=== PATIENT | female | born 1950 | race Caucasian/White ===

== ENCOUNTER 2016-09-28 19:51 | Emergency (ER) | payer MEDICARE, BC ==
[2016-09-28 19:58] VITALS: BP 120/69
[2016-09-28] MEDS ORDERED: Ondansetron 4 MG/2 ML SDV IVPUSH ONE (20:34)
--- NOTE | 2016-09-28 20:36 | EDM.PDOC ---
ED HPI GENERAL MEDICAL PROBLEM - General Chief Complaint: Syncope Stated Complaint: ADRIANA BENJAMIN Time Seen by Provider: 09/28/16 20:25 Source of Information: Reports: Patient, EMS, EMS Notes Reviewed History Limitations: Reports: No Limitations - History of Present Illness INITIAL COMMENTS - FREE TEXT/NARRATIVE: Patient is a 66-year-old female who presents to the ED complaining of syncopal episode, left-sided forehead and nose pain. Patient states while sitting on the toilet to void she became dizzy, lightheaded, nauseated, and put her head between her legs. States that and other family members heard the patient hit the bathroom floor and found her lying unconscious on the bathroom floor. Patient was arousable quite quickly with no confusion present. 911 was called. Patient was able to get up with assistance and ambulate to a chair. Upon arrival EMS found the patient to be pale, diaphoretic, and dizzy. They laid the patient down. Patient became nauseated and vomited 1. States she felt better after this occurred. Prior to having a syncopal episode patient denies straining to void. Patient states since noon she's felt quite queasy and felt her stomach to be upset with mild epigastric discomfort. She has been nauseated throughout the course of the day. Upon arrival to the ED diaphoresis has somewhat improved and the color of her skin has improved as well. States last bowel movement was this afternoon described as being soft with no blood present. No straining required. She's had no prior history of similar symptoms. She denies any chest pain, shortness of breath, vision changes, headache, neck pain, back pain, dysuria, fever/chills, recent sick exposures, bad or questionable food ingestion. Past medical history includes: Hypertension, hypercholesteremia, iron deficiency anemia, bilateral knee arthritis Current medications include: See list. - Related Data Allergies Allergy/AdvReac Type Severity Reaction Status Date / Time No Known Allergies Allergy Verified 09/28/16 19:53 Home Meds: Home Meds Losartan Potassium [Losartan Potassium] 50 mg PO DAILY 09/28/16 [History] Nabumetone 500 mg PO DAILY 09/28/16 [History] Zolpidem [Ambien] 5 mg PO BEDTIME PRN 09/28/16 [History] atorvaSTATin Calcium [Atorvastatin Calcium] 20 mg PO DAILY 09/28/16 [History] Nitrofurantoin Monohyd/M-Cryst [Macrobid 100 mg Capsule] 100 mg PO BID #10 capsule 09/29/16 [Rx] Past Medical History Cardiovascular History: Reports: High Cholesterol, Hypertension Social & Family History - Tobacco Use Smoking Status *Q: Never Smoker - Recreational Drug Use Recreational Drug Use: No ED ROS GENERAL - Review of Systems Review Of Systems: ROS reveals no pertinent complaints other than HPI. - Physical Exam Exam: See Below Exam Limited By: No Limitations General Appearance: Alert, WD/WN, No Apparent Distress Eye Exam: Bilateral Eye: EOMI, Nystagmus (none found), PERRL Ears: Hearing Grossly Normal Nose: Nasal Tenderness. No: Nasal Deformity, Nasal Swelling Throat/Mouth: Normal Inspection, Normal Oropharynx, Normal Voice, No Airway Compromise Head Exam: Facial Ecchymosis, Facial Swelling, Facial Tenderness Neck: Normal Inspection, Supple, Non-Tender, Full Range of Motion. No: Lymphadenopathy (L), Lymphadenopathy (R) Respiratory/Chest: No Respiratory Distress, Lungs Clear, Normal Breath Sounds, No Accessory Muscle Use, Chest Non-Tender Cardiovascular: Normal Peripheral Pulses, Regular Rate, Rhythm, No Murmur GI/Abdominal: Normal Bowel Sounds, Soft, Non-Tender, No Organomegaly, No Distention Neuro Exam (Abbreviated): Alert, Oriented, CN II-XII Intact, Normal Cognition, No Motor/Sensory Deficits, Other (Cerebellum function intact. No facial droop, upper/lower extremity weakness, pronator drift, slurred speech. ) Back Exam: Normal Inspection, Full Range of Motion. No: Paraspinal Tenderness, Vertebral Tenderness Extremities: Normal Inspection, Normal Range of Motion, Non-Tender, No Pedal Edema, Normal Capillary Refill Psychiatric: Normal Affect, Normal Mood Skin Exam: Warm, Intact, Diaphoretic Course - Vital Signs Last Recorded V/S: Last Vital Signs Temp 96.6 F 09/28/16 19:53 Pulse 104 H 09/28/16 19:53 Resp 20 09/28/16 19:53 BP 120/69 09/28/16 19:53 Pulse Ox 95 09/28/16 19:53 Orthostatic Blood Pressure [ 104/66 Standing] Orthostatic Blood Pressure [ 117/65 Sitting] Orthostatic Blood Pressure [ 136/73 Supine] - Orders/Labs/Meds Orders: Active Orders 24 hr Category Date Time Status EKG Documentation Completion [RC] STAT Care 09/28/16 20:08 Active Fecal Occult Blood Collection [RC] ASDIRECTED Care 09/29/16 06:36 Active Orthostatic Vital Signs [RC] ASDIRECTED Care 09/28/16 20:27 Active CULTURE URINE [RM] Stat Lab 09/29/16 01:15 Results Labs: Laboratory Tests 09/28/16 09/28/16 09/28/16 Range/Units 20:45 20:45 20:45 WBC 13.03 H (3.98-10.04) K/mm3 RBC 3.16 L (3.98-5.22) M/mm3 Hgb 9.2 L (11.2-15.7) gm/L Hct 29.0 L (34.1-44.9) % MCV 91.8 (79.4-94.8) fl MCH 29.1 (25.6-32.2) pg MCHC 31.7 L (32.2-35.5) g/dl RDW Std Deviation 43.0 (36.4-46.3) fL Plt Count 316 (182-369) K/mm3 MPV 9.5 (9.4-12.3) fl Neut % (Auto) 67.3 (34.0-71.1) % Lymph % (Auto) 23.8 (19.3-51.7) % Mcdowell % (Auto) 7.0 (4.7-12.5) % Eos % (Auto) 1.2 (0.7-5.8) Baso % (Auto) 0.3 (0.1-1.2) % Neut # (Auto) 8.77 H (1.56-6.13) K/mm3 Lymph # (Auto) 3.10 (1.18-3.74) K/mm3 Mcdowell # (Auto) 0.91 H (0.24-0.36) K/mm3 Eos # (Auto) 0.16 (0.04-0.36) K/mm3 Baso # (Auto) 0.04 (0.01-0.08) K/mm3 Manual Slide Review Abnormal smear Sodium (136-145) mEq/L Potassium (3.5-5.1) mEq/L Chloride (98-107) mEq/L Carbon Dioxide (21-32) mEq/L Anion Gap (5-15) BUN (7-18) mg/dL Creatinine (0.55-1.02) mg/dL Est Cr Clr Drug Dosing mL/min Estimated GFR (MDRD) (>60) mL/min BUN/Creatinine Ratio (14-18) Glucose (80-115) mg/dL Calcium (8.5-10.1) mg/dL Total Bilirubin (0.2-1.0) mg/dL AST (15-37) U/L ALT (14-59) U/L Alkaline Phosphatase (46-116) U/L Troponin I < 0.017 (0.00-0.056) ng/mL C-Reactive Protein < 0.2 (<1.0) mg/dL B-Natriuretic Peptide < 15 (0-100) pg/mL Total Protein (6.4-8.2) g/dl Albumin (3.4-5.0) g/dl Globulin gm/dL Albumin/Globulin Ratio (1-2) Lipase 164 (73-393) U/L Urine Color (Yellow) Urine Appearance (Clear) Urine pH (5.0-8.0) Ur Specific [place] (1.005-1.030) Urine Protein (Negative) Urine Glucose (UA) (Negative) Urine Ketones (Negative) Urine Occult Blood (Negative) Urine Nitrite (Negative) Urine Bilirubin (Negative) Urine Urobilinogen (0.2-1.0) Ur Leukocyte Esterase (Negative) Urine RBC (0-5) /hpf Urine WBC (0-5) /hpf Ur Epithelial Cells (0-5) /hpf Urine Bacteria (FEW) /hpf Urine Mucus (FEW) /hpf 09/28/16 09/28/16 Range/Units 20:45 21:30 WBC (3.98-10.04) K/mm3 RBC (3.98-5.22) M/mm3 Hgb (11.2-15.7) gm/L Hct (34.1-44.9) % MCV (79.4-94.8) fl MCH (25.6-32.2) pg MCHC (32.2-35.5) g/dl RDW Std Deviation (36.4-46.3) fL Plt Count (182-369) K/mm3 MPV (9.4-12.3) fl Neut % (Auto) (34.0-71.1) % Lymph % (Auto) (19.3-51.7) % Mcdowell % (Auto) (4.7-12.5) % Eos % (Auto) (0.7-5.8) Baso % (Auto) (0.1-1.2) % Neut # (Auto) (1.56-6.13) K/mm3 Lymph # (Auto) (1.18-3.74) K/mm3 Mcdowell # (Auto) (0.24-0.36) K/mm3 Eos # (Auto) (0.04-0.36) K/mm3 Baso # (Auto) (0.01-0.08) K/mm3 Manual Slide Review Sodium 143 (136-145) mEq/L Potassium 3.6 (3.5-5.1) mEq/L Chloride 110 H (98-107) mEq/L Carbon Dioxide 22 (21-32) mEq/L Anion Gap 14.6 (5-15) BUN 50 H (7-18) mg/dL Creatinine 0.7 (0.55-1.02) mg/dL Est Cr Clr Drug Dosing 65.40 mL/min Estimated GFR (MDRD) > 60 (>60) mL/min BUN/Creatinine Ratio 71.4 H (14-18) Glucose 111 (80-115) mg/dL Calcium 8.3 L (8.5-10.1) mg/dL Total Bilirubin 0.2 (0.2-1.0) mg/dL AST 13 L (15-37) U/L ALT 23 (14-59) U/L Alkaline Phosphatase 70 (46-116) U/L Troponin I (0.00-0.056) ng/mL C-Reactive Protein (<1.0) mg/dL B-Natriuretic Peptide (0-100) pg/mL Total Protein 6.1 L (6.4-8.2) g/dl Albumin 2.9 L (3.4-5.0) g/dl Globulin 3.2 gm/dL Albumin/Globulin Ratio 0.9 L (1-2) Lipase (73-393) U/L Urine Color Yellow (Yellow) Urine Appearance Clear (Clear) Urine pH 6.5 (5.0-8.0) Ur Specific [place] 1.015 (1.005-1.030) Urine Protein Negative (Negative) Urine Glucose (UA) Negative (Negative) Urine Ketones Negative (Negative) Urine Occult Blood Negative (Negative) Urine Nitrite Negative (Negative) Urine Bilirubin Negative (Negative) Urine Urobilinogen 0.2 (0.2-1.0) Ur Leukocyte Esterase 1+ H (Negative) Urine RBC 0-5 (0-5) /hpf Urine WBC 5-10 H (0-5) /hpf Ur Epithelial Cells 0-5 (0-5) /hpf Urine Bacteria Few (FEW) /hpf Urine Mucus Not seen (FEW) /hpf Meds: Medications Discontinued Medications Generic Name Dose Route Start Last Admin Trade Name Freq PRN Reason Stop Dose Admin Sodium Chloride 1,000 mls @ 999 mls/hr 09/29/16 00:03 09/29/16 00:12 Normal Saline IV 09/29/16 01:03 999 mls/hr ONETIME ONE Administration Nitrofurantoin Macrocrystals 100 mg 09/29/16 01:16 09/29/16 01:30 Macrobid PO 09/29/16 01:17 100 mg ONETIME ONE Administration Ondansetron HCl 4 mg 09/28/16 20:34 09/28/16 20:39 Zofran IVPUSH 09/28/16 20:35 4 mg ONETIME ONE Administration Pantoprazole Sodium 40 mg 09/29/16 01:17 09/29/16 01:30 Protonix PO 09/29/16 01:18 40 mg ONETIME ONE Administration - Re-Assessments/Exams Free Text/Narrative Re-Assessment/Exam: Peripheral IV established by EMS with NS running TKO. Ordered Zofran 4 mg IVP. Initial labs and studies include EKG, chest x-ray, CBC, chem 14, CRP, UA, lipase , and CT head without contrast. Per well's criteria patient has low probability of PE with the prevalence of 2-4%. Patient's heart rate is 110. There are no clinical signs or symptoms suggesting DVTs and/or PE being the first one diagnosis. She denies recent surgery. She has no history DVT/PE. Denies any hemoptysis or malignancy. EKG: Sinus tachycardia with no acute ST changes noted. One PVC present. Labs reviewed: White blood cell count 13.03, hemoglobin is 9.2 which is decreased from January 23, 2017 at 12.5, platelets 316, troponin less than 0.017 , CRP is less than 0.2, BNP less than 15, lipase is 164. Ordered Hemoccult test. Chemistry panel is pending. Chest x-ray reviewed: Appears to be a hiatal hernia present with borderline cardiomegaly. No acute findings noted. Reviewed with Dr. Sofia. CT of the head impression: Nothing acute appreciated. 09/28/16 21:42 09/28/16 23:19 Hemoccult was positive. BUN is 50. This suggesting upper GI bleed. Orthostatic vitals have not been obtained. Orthostatic vitals were positive. Patient has no history of congestive heart failure. Patient recently started nabumetone for arthritis twice a day 2 weeks ago and suspect may be a culprit for recent GI bleed. At this point will administer 1 thousand mls of fluid. To see if this corrects her orthostasis. She can see a GI doctor on a outpatient basis for EGD and colonoscopy. This is patient's wishes to be not admitted to the hospital at this point. Of note patients color has drastically improved. Patient is not nauseated. She feels significantly better. No dizziness noted with standing. UA came back positive for infection. Urine WBCs 5 to 10 and LE positive. Ordered macrobid 100mg PO and protonix 40mg IV. 1315 HR is trending downward 96. BP remains normotensive. Patient continues to feel well with no dizziness upon standing. Will discharge patient home with instructions as documented. Departure - Departure Time of Disposition: 01:28 Disposition: Home, Self-Care 01 Condition: Good Clinical Impression: Orthostatic syncope GI bleed Qualifiers: GI bleed type/associated pathology: unspecified gastrointestinal hemorrhage type Qualified Code(s): K92.2 - Gastrointestinal hemorrhage, unspecified Anemia Qualifiers: Anemia type: unspecified type Qualified Code(s): D64.9 - Anemia, unspecified - Discharge Information Prescriptions: Nitrofurantoin Monohyd/M-Cryst [Macrobid 100 mg Capsule] 100 mg PO BID #10 capsule Instructions: Gastrointestinal Bleeding Referrals: Susan De Souza PA [Primary Care Provider] - Jazmyne Martinez MD [Physician] - Forms: ED Department Discharge Additional Instructions: As discussed hemoglobin is 9.2 which is drop from 12 this past January. Stool was positive for blood suggesting is a GI bleed present. Unknown when this may have started. Unclear if this is related to starting nabumetone. Thus will have you stop taking the nabumetone and any nsaids since this can be contributing to GI bleed. In addition will have start taking omeprazole 20mg PO every a.m. In addition UA revealed positive for infection thus will have you take macrobid 100mg twice a day for 2 days. Upon arrival to the E.D. it was noted vital signs were orthostatic suggesting associated volume depletion. Probable cause combination of not feeling well with poor intake of fluids and low HGB. Thus will have you see a general surgeon in the next week for reevaluation. EGD and colonoscopy will need to be obtained to further investigate etiology of GI bleed. Push the fluids and eat balanced diet. Continue taking iron supplementation. Return to the E.D. if you experience any new or worsening symptoms. - My Orders Last 24 Hours: My Active Orders 09/28/16 20:08 EKG Documentation Completion [RC] STAT 09/28/16 20:27 Orthostatic Vital Signs [RC] ASDIRECTED 09/29/16 01:15 CULTURE URINE [RM] Stat 09/29/16 06:36 Fecal Occult Blood Collection [RC] ASDIRECTED - Assessment/Plan Last 24 Hours: My Active Orders 09/28/16 20:08 EKG Documentation Completion [RC] STAT 09/28/16 20:27 Orthostatic Vital Signs [RC] ASDIRECTED 09/29/16 01:15 CULTURE URINE [RM] Stat 09/29/16 06:36 Fecal Occult Blood Collection [RC] ASDIRECTED
--- NOTE | 2016-09-28 21:18 | CT ---
Head CT Technique: Multiple axial sections through the brain were obtained. Intravenous contrast was not utilized. Comparison: No previous intracranial imaging. Findings: Ventricles along with basal cisterns and sulci over the convexities are within normal limits for the patient's age. Mild vascular calcification is seen within carotid siphon and within the right vertebral vessel. No abnormal parenchymal densities are seen. No evidence of intracranial hemorrhage. No midline shift or mass effect is seen. Bone window settings were reviewed which shows no acute calvarial abnormality. Impression: 1. Incidental findings. Nothing acute is appreciated on noncontrast head CT study. Diagnostic code #2
[2016-09-29] MEDS ORDERED: Sodium Chloride 0.9% 1,000 ML IV ONE (00:03)
[2016-09-29] MEDS ORDERED: Nitrofurantoin Monohydrate/Macrocrystalline 100 MG Cap PO ONE (01:16)
[2016-09-29] MEDS ORDERED: Pantoprazole 40 MG Tab.CR PO ONE (01:17)
--- NOTE | 2016-09-29 07:43 | CR ---
Chest: Portable view of the chest was obtained. Comparison: No previous study. Heart is mildly enlarged. Tortuous thoracic aorta is seen. Moderately large hiatal hernia is present. Lungs are clear. Bony structures are grossly intact. Impression: 1. Incidental findings as noted above. 2. Nothing acute is identified on portable chest x-ray. Diagnostic code #2
== END 2016-09-29 01:45 | disposition home or self-care (01) ==
LOC: JD.ED 19:51
DX: R55 Syncope and collapse (principal); K92.2 Gastrointestinal hemorrhage, unspecified; D64.9 Anemia, unspecified; I10 Essential (primary) hypertension; E78.00 Pure hypercholesterolemia, unspecified; M17.0 Bilateral primary osteoarthritis of knee; Z79.899 Other long term (current) drug therapy
CPT/HCPCS: 36415; 70450; 71010; 80053; 81001; 82270; 83690; 83880; 84484; 85025; 86140; 87086; 93005; 96361; 96374; 99285; A9270; J2405; J7040; 99284

== ENCOUNTER 2017-05-20 14:06 | Emergency (ER) | payer MEDICARE, BC ==
[2017-05-20 14:16] VITALS: BP 173/95
--- NOTE | 2017-05-20 14:34 | EDM.PDOC ---
ED HPI GENERAL MEDICAL PROBLEM - General Chief Complaint: General Stated Complaint: CHEST CONGESTION/ COUGH Time Seen by Provider: 05/20/17 14:20 Source of Information: Reports: Patient History Limitations: Reports: No Limitations - History of Present Illness INITIAL COMMENTS - FREE TEXT/NARRATIVE: 66-year-old female presents for evaluation and treatment of cough and congestion. Reports that her symptoms started with nasal congestion and sinus pressure. She initially used a nasal mist for her symptoms. Reports current symptoms of fevers and chills, decreased appetite, fatigue, weakness and productive cough. She questions if there was some blood in her cough. She denies any sore throat, ear pain, nausea, vomiting, diarrhea or abdominal pain. She is not feel lightheaded or had any syncopal episodes. She did receive a pneumonia and a flu shot earlier this year. Duration: Day(s): (2) Middle Chest Pain Score (Numeric/FACES): 4 - Related Data Allergies Allergy/AdvReac Type Severity Reaction Status Date / Time No Known Allergies Allergy Verified 05/20/17 14:15 Home Meds: Home Meds Losartan Potassium [Losartan Potassium] 50 mg PO DAILY 09/28/16 [History] Zolpidem [Ambien] 5 mg PO BEDTIME PRN 09/28/16 [History] atorvaSTATin Calcium [Atorvastatin Calcium] 20 mg PO DAILY 09/28/16 [History] Oseltamivir [Tamiflu] 75 mg PO BID #10 cap 05/20/17 [Rx] Past Medical History HEENT History: Reports: Impaired Vision Cardiovascular History: Reports: High Cholesterol, Hypertension Genitourinary History: Reports: Renal Calculus - Past Surgical History Female Surgical History: Reports: Kidney stone extraction Social & Family History - Tobacco Use Smoking Status *Q: Never Smoker Second Hand Smoke Exposure: No - Caffeine Use Caffeine Use: Reports: Coffee - Recreational Drug Use Recreational Drug Use: No ED ROS GENERAL - Review of Systems Review Of Systems: See Below Constitutional: Reports: Fever, Chills, Weakness, Fatigue HEENT: Denies: Ear Pain, Throat Pain Respiratory: Reports: Cough, Sputum, Hemoptysis (minimal amount, tinge in phlegm ) GI/Abdominal: Denies: Abdominal Pain, Diarrhea, Nausea, Vomiting Neurological: Denies: Dizziness, Syncope ED EXAM, GENERAL - Physical Exam Exam: See Below Exam Limited By: No Limitations General Appearance: Alert, WD/WN, Mild Distress, Obese Eye Exam: Bilateral Eye: Normal Inspection Ears: Normal External Exam, Normal Canal, Hearing Grossly Normal, Normal TMs Nose: Normal Inspection Throat/Mouth: Normal Inspection, Normal Lips, Normal Voice, No Airway Compromise Neck: Normal Inspection Respiratory/Chest: No Respiratory Distress, Lungs Clear, Normal Breath Sounds Cardiovascular: Normal Peripheral Pulses, Regular Rate, Rhythm, No Murmur Neurological: Alert, Oriented, Normal Cognition Psychiatric: Normal Affect, Normal Mood Skin Exam: Normal Color, Diaphoretic, Increased Warmth Course - Vital Signs Last Recorded V/S: Last Vital Signs Temp 36.4 C 05/20/17 14:12 Pulse 115 H 05/20/17 14:12 Resp 19 05/20/17 14:12 BP 173/95 H 05/20/17 14:12 Pulse Ox 95 05/20/17 14:18 - Orders/Labs/Meds Orders: Active Orders 24 hr Category Date Time Status Chest 2V [CR] Stat Exams 05/20/17 14:29 Taken - Radiology Interpretation Free Text/Narrative:: chest xray shows no acute intrathoraic process - Re-Assessments/Exams Free Text/Narrative Re-Assessment/Exam: 05/20/17 15:26 Influenza returned positive for type a. I reviewed the labs and chest x-ray results with the patient. Discussed risk and benefits of Tamiflu. Informed of side effects of nausea, vomiting and diarrhea. Offered her significant other Tamiflu for prophylactics. Patient would like to start on Tamiflu. Significant other declined. We will have her follow up with her primary care provider later this week for recheck. Discharge instructions as documented. Departure - Departure Time of Disposition: 15:26 Disposition: Home, Self-Care 01 Condition: Fair Clinical Impression: Influenza A - Discharge Information Prescriptions: Oseltamivir [Tamiflu] 75 mg PO BID #10 cap Instructions: Influenza, Adult, [id number] Referrals: PCP,None [Primary Care Provider] - Forms: ED Department Discharge Additional Instructions: Rest. Make sure you're drinking plenty of fluids. [id number] Tylenol and Motrin as needed for headaches and body equally. Start the Tamiflu. 1 tab twice a day for 5 days. This has been sent to [facility]. Follow up with your primary care provider in one to 2 weeks for a recheck of your symptoms. please return to the ER if your symptoms change or worsen. - My Orders Last 24 Hours: My Active Orders 05/20/17 14:29 Chest 2V [CR] Stat - Assessment/Plan Last 24 Hours: My Active Orders 05/20/17 14:29 Chest 2V [CR] Stat
--- NOTE | 2017-05-21 17:47 | CR ---
Chest: Two views of the chest were obtained. Comparison: Prior chest x-ray of 09/28/16. Scattered areas of atelectasis are seen within both lung bases. Lungs otherwise are clear. Moderately large hiatal hernia is seen. Heart is slightly enlarged with left ventricular configuration. Tortuous thoracic aorta is seen. Bony structures are osteopenic. Mild compression deformity is noted within the lower thoracic spine which is likely old although I have no old imaging to confirm. Impression: 1. Scattered areas of atelectasis within both lungs. 2. Other incidental findings. Diagnostic code #3
== END 2017-05-20 15:35 | disposition home or self-care (01) ==
LOC: JD.ED 14:06
DX: J10.1 Influenza due to other identified influenza virus with other respiratory manifestations (principal); I10 Essential (primary) hypertension; E78.00 Pure hypercholesterolemia, unspecified; Z79.899 Other long term (current) drug therapy
CPT/HCPCS: 71046; 71046-26; 87804; 99283; 99284

== ENCOUNTER 2023-09-14 06:45 | Day surgery (SDC) | payer MEDICARE, BC ==
[~2023-09-14 06:45] MED LIST: Lactated Ringers 1,000 ML ONE; Propofol 200 MG/20 ML SDV ONE; Sodium Chloride 0.9% 10 ML Syringe FLUSH PRN; Sodium Chloride 0.9% 10 ML Syringe FLUSH SCH; ceFAZolin 2 GM Vial ONE; fentaNYL 100 MCG/2 ML SDV ONE
[2023-09-14] MEDS ORDERED: Ropivacaine 0.5% 5 MG/ML 30 ML SDV ONE (06:50)
[2023-09-14] MEDS ORDERED: EPINEPHrine 1 MG/ML SDV ONE (06:50)
[2023-09-14] MEDS: Lactated Ringers 1,000 ML IV SCH (07:00)
[2023-09-14] MEDS ORDERED: Bupivacaine 0.25% 10 ML SDV ONE (07:13)
[2023-09-14] MEDS ORDERED: Triamcinolone Acetonide 40 MG/ML 1 ML SDV ONE (07:13)
[2023-09-14] MEDS ORDERED: Dexamethasone 4 MG/ML 5 ML MDV ONE (07:56)
[2023-09-14] MEDS ORDERED: Ondansetron 4 MG/2 ML SDV ONE (07:56)
[2023-09-14] MEDS ORDERED: dexmedeTOMIDine HCl 200 MCG/2 ML SDV ONE (07:56)
[2023-09-14] MEDS ORDERED: Propofol 200 MG/20 ML SDV ONE ×2 (08:05→08:44)
[2023-09-14] MEDS ORDERED: ePHEDrine 50 MG/ML SDV ONE (08:06)
[2023-09-14] MEDS ORDERED: Phenylephrine 1% 10 MG/ML SDV ONE (08:33)
[2023-09-14] MEDS: Morphine 8 MG, EPINEPHrine 0.3 MG, Cefuroxime 750 MG, Ketorolac 30 MG, Sodium Chloride ... PRN (08:44)
[2023-09-14] MEDS: Tranexamic Acid 1,000 MG/10 ML Vial ONE (08:52)
[2023-09-14] MEDS ORDERED: Ketorolac 30 MG/ML SDV ONE (08:52)
[2023-09-14] MEDS: Vancomycin 1 GM SDV ONE (08:52)
[2023-09-14] MEDS ORDERED: Ondansetron 4 MG/2 ML SDV IVPUSH PRN (09:33)
[2023-09-14] MEDS ORDERED: fentaNYL 100 MCG/2 ML SDV IVPUSH PRN (09:33)
[2023-09-14] MEDS ORDERED: HYDROmorphone 0.5 MG/0.5 ML Syringe IVPUSH PRN (09:33)
[2023-09-14] MEDS ORDERED: Acetaminophen/HYDROcodone 325-5 MG Tab PO PRN (09:56)
[2023-09-14 14:38] VITALS: BP 131/78; PULSE 89
== END 2023-09-14 14:25 | disposition home or self-care (01) ==
LOC: JD.SDS 06:45
PROVIDERS: ATTEND Orthopaedic Surgery
DX: M17.0 Bilateral primary osteoarthritis of knee (principal); I10 Essential (primary) hypertension; K21.9 Gastro-esophageal reflux disease without esophagitis; E78.00 Pure hypercholesterolemia, unspecified; D50.9 Iron deficiency anemia, unspecified; D72.829 Elevated white blood cell count, unspecified; Z79.899 Other long term (current) drug therapy
CPT/HCPCS: 0055T; 20610; 27447; 64447; 73560; 97110; 97161; C1713; C1776; J0171; J0665; J0690; J0697; J1100; J1885; J2270; J2371; J2405; J2704; J2795; J3010; J3301; J3370; J7120; 01402; J3490

== ENCOUNTER 2024-03-14 13:03 | Emergency (ER) | payer MEDICARE, OTHER, BC ==
[2024-03-14] MEDS ORDERED: Sodium Chloride 0.9% 10 ML Syringe FLUSH PRN ×2 (13:52)
[2024-03-14 14:23] LABS: APPEARANCE,URINE CLEAR (Clear); BILIRUBIN,URINE NEGATIVE (Negative); COLOR,URINE YELLOW (Yellow); GLUCOSE,URINE NEGATIVE (Negative); KETONES,URINE NEGATIVE (Negative); LEUKOCYTE ESTERASE,URINE 1+ (Negative); NITRITE,URINE NEGATIVE (Negative); OCCULT BLOOD,URINE NEGATIVE (Negative); PROTEIN,URINE 1+ (Negative); UROBILINOGEN,URINE 0.2 (0.2-1.0)
[2024-03-14 14:32] LABS: BASOPHILS PERCENT AUTO 0.4 % (0.0-1.0); EOSINOPHILS ABSOLUTE AUTO 0.1 K/mm3 (0.0-0.4); EOSINOPHILS PERCENT AUTO 0.7 % (0.0-6.0); HEMATOCRIT 34.6 % (37.0-47.0); IMMATURE GRAN ABSOLUTE AUTO 0.04 K/mm3 (0.00-0.05); IMMATURE GRAN PERCENT AUTO 0.4 % (0.0-0.4); MEAN CORPUSCULAR HEMOGLOBIN 27.6 pg (28.0-32.0); MEAN CORPUSCULAR HGB CONC 31.8 g/dl (32.0-36.0); MEAN CORPUSCULAR VOLUME 86.7 fl (83.0-99.0); MEAN PLATELET VOLUME 9.2 fl (9.4-12.3); MONOCYTES ABSOLUTE AUTO 0.6 K/mm3 (0.0-0.8); MONOCYTES PERCENT AUTO 5.4 % (0.0-8.0); NEUTROPHILS ABSOLUTE AUTO 8.3 K/mm3 (1.8-7.7); NEUTROPHILS PERCENT AUTO 75.1 % (41.0-71.0); PLATELET COUNT,PLT 309 K/mm3 (150-400); RED BLOOD CELL COUNT 3.99 M/mm3 (4.10-5.30); WHITE BLOOD CELL COUNT,WBC 11.03 K/mm3 (3.9-11.3)
[2024-03-14 14:56] LABS: INR 1.02; PROTHROMBIN TIME 10.8 SECONDS (9.7-12.0)
[2024-03-14 14:59] LABS: A/G RATIO 0.8 (1-2); ALBUMIN 3.2 g/dl (3.4-5.0); ANION GAP 15.3 (5-15); BILIRUBIN TOTAL 0.3 mg/dL (0.2-1.0); CALCIUM 9.3 mg/dL (8.5-10.1); EST CRCL DRUG DOSING (CG) 41.45 mL/min; LACTIC ACID 1.2 mmol/L (0.4-2.0); MAGNESIUM 1.9 mg/dL (1.8-2.4); POTASSIUM,K 3.3 mEq/L (3.5-5.1); PROTEIN TOTAL,TP 7.3 g/dl (6.4-8.2)
[2024-03-14 15:42] LABS: RBC,URINE 0-5 /hpf (0-5); RENAL EPITHELIAL CELLS,URINE 0-5 /hpf (0-5); SQUAMOUS EPITHELIAL CELLS,UR 0-5 /hpf (0-5)
[2024-03-14 15:43] LABS: BACTERIA,URINE FEW /hpf (FEW); HYALINE CASTS,URINE 30-40 /lpf (0-5); MUCUS,URINE FEW /hpf (FEW)
[2024-03-14 19:08] VITALS: BP 110/60; PULSE 79
== END 2024-03-14 16:49 | disposition home or self-care (01) ==
LOC: JD.ED 13:03
DX: R53.1 Weakness (principal); I10 Essential (primary) hypertension; E78.00 Pure hypercholesterolemia, unspecified; Z88.8 Allergy status to other drugs, medicaments and biological substances; Z79.899 Other long term (current) drug therapy; Z86.16 Personal history of COVID-19
CPT/HCPCS: 36415; 71045; 71045-26; 80053; 81001; 83605; 83735; 84484; 85025; 85610; 87040; 87086; 87428-QW; 93005; 93010; 99284; 99285

== ENCOUNTER 2024-04-23 06:43 | Day surgery (SDC) | payer MEDICARE, BC, OTHER ==
[~2024-04-23 06:43] MED LIST changes: -Lactated Ringers 1,000 ML ONE; -ceFAZolin 2 GM Vial ONE; -fentaNYL 100 MCG/2 ML SDV ONE
[2024-04-23] MEDS ORDERED: dexmedeTOMIDine HCl 200 MCG/2 ML SDV ONE (06:46)
[2024-04-23] MEDS: Lactated Ringers 1,000 ML IV SCH (07:00)
[2024-04-23] MEDS ORDERED: Ondansetron 4 MG/2 ML SDV ONE (07:15)
[2024-04-23] MEDS ORDERED: ePHEDrine 50 MG/ML SDV ONE (07:28)
[2024-04-23 09:15] VITALS: BP 140/80; PULSE 98
== END 2024-04-23 08:45 | disposition home or self-care (01) ==
LOC: JD.SDS 06:43
PROVIDERS: ATTEND Surgery
DX: K29.51 Unspecified chronic gastritis with bleeding (principal); K44.9 Diaphragmatic hernia without obstruction or gangrene; K57.31 Diverticulosis of large intestine without perforation or abscess with bleeding; I10 Essential (primary) hypertension; E78.00 Pure hypercholesterolemia, unspecified; K21.9 Gastro-esophageal reflux disease without esophagitis; D64.9 Anemia, unspecified; Z79.899 Other long term (current) drug therapy
CPT/HCPCS: 00813; 88305; 99100; J2405; J2704; J3490; J7120

== ENCOUNTER 2024-05-07 09:39 | Observation (INO) | payer MEDICARE, OTHER, BC ==
[~2024-05-07 09:39] MED LIST changes: +Dexamethasone 4 MG/ML 5 ML MDV ONE; +Lidocaine 1% 5 ML VIAL ONE; +Ondansetron 4 MG/2 ML SDV ONE; +Phenylephrine 1% 10 MG/ML SDV ONE; +Rocuronium 50 MG/5 ML Vial ONE; -Sodium Chloride 0.9% 10 ML Syringe FLUSH SCH; +dexmedeTOMIDine HCl 200 MCG/2 ML SDV ONE; +fentaNYL 100 MCG/2 ML SDV ONE
[2024-05-07] MEDS ORDERED: ceFAZolin 2 GM Vial ONE (10:07)
[2024-05-07] MEDS: Lactated Ringers 1,000 ML IV SCH ×2 (10:15→15:19)
[2024-05-07] MEDS ORDERED: HYDROmorphone 0.5 MG/0.5 ML Syringe ONE (10:37)
[2024-05-07] MEDS ORDERED: fentaNYL 100 MCG/2 ML SDV ONE (10:38)
[2024-05-07] MEDS ORDERED: Rocuronium 50 MG/5 ML Vial ONE (10:40)
[2024-05-07] MEDS ORDERED: Propofol 200 MG/20 ML SDV ONE (10:47)
[2024-05-07] MEDS: EPINEPHrine 1 MG/ML SDV ONE (11:32)
[2024-05-07] MEDS: Bupivacaine 0.5% 30 ML SDV ONE (11:32)
[2024-05-07] MEDS ORDERED: Lactated Ringers 1,000 ML ONE (11:34)
[2024-05-07] MEDS ORDERED: Sugammadex Sodium 200 MG/2 ML VIAL IV ONE (12:03)
[2024-05-07] MEDS ORDERED: HYDROmorphone 0.5 MG/0.5 ML Syringe IVPUSH PRN ×2 (13:26→13:48)
[2024-05-07] MEDS ORDERED: Promethazine 25 MG Tab PO PRN (13:26)
[2024-05-07] MEDS ORDERED: Acetaminophen 325 MG Tab PO PRN (13:26)
[2024-05-07] MEDS ORDERED: Ondansetron 4 MG Tab.DIS PO PRN (13:26)
[2024-05-07] MEDS ORDERED: Ketorolac 15 MG/ML SDV IVPUSH PRN (13:26)
[2024-05-07] MEDS ORDERED: diphenhydrAMINE 50 MG/ML SDV IVPUSH PRN (13:32)
[2024-05-07] MEDS ORDERED: Benzocaine/Cetylpyridinium/Menthol Lozenge MUCMEM PRN (13:32)
[2024-05-07] MEDS ORDERED: Simethicone 80 MG Tab.Chew PO PRN (13:33)
[2024-05-07] MEDS ORDERED: fentaNYL 100 MCG/2 ML SDV IVPUSH PRN (13:48)
[2024-05-07] MEDS ORDERED: Ondansetron 4 MG/2 ML SDV IVPUSH PRN (13:48)
[2024-05-07] MEDS: Sodium Chloride 0.9% 10 ML Syringe FLUSH SCH (15:10)
[2024-05-07] MEDS: Magnesium Oxide 400 MG Tab PO SCH (20:13)
[2024-05-07] MEDS: Potassium Chloride 20 MEQ Tab.ER PO SCH (20:13)
[2024-05-07] MEDS: oxyCODONE 5 MG Tab PO PRN (20:19)
[2024-05-08 04:33] LABS: HEMATOCRIT 36.2 % (37.0-47.0); HEMOGLOBIN 11.1 gm/dl (12.0-16.0); MEAN CORPUSCULAR HEMOGLOBIN 26.9 pg (28.0-32.0); MEAN CORPUSCULAR HGB CONC 30.7 g/dl (32.0-36.0); MEAN CORPUSCULAR VOLUME 87.7 fl (83.0-99.0); MEAN PLATELET VOLUME 8.9 fl (9.4-12.3); PLATELET COUNT,PLT 285 K/mm3 (150-400); RED BLOOD CELL COUNT 4.13 M/mm3 (4.10-5.30); WHITE BLOOD CELL COUNT,WBC 15.73 K/mm3 (3.9-11.3)
[2024-05-08 05:04] LABS: BUN/CREATININE RATIO 21.4 (14-18); CALCIUM 8.7 mg/dL (8.5-10.1); CREATININE 0.7 mg/dL (0.55-1.02); EST CRCL DRUG DOSING (CG) 59.21 mL/min
[2024-05-08] MEDS: Rosuvastatin 10 MG Tab PO SCH (08:03)
[2024-05-08] MEDS: Gabapentin 100 MG Cap PO SCH (08:03)
[2024-05-08 11:17] VITALS: BP 112/49; PULSE 81
== END 2024-05-08 11:07 | disposition home or self-care (01) ==
LOC: INTOOBSV 09:39 → JD.MS 09:39
PROVIDERS: ADMIT Surgery; ATTEND Surgery
DX: K44.9 Diaphragmatic hernia without obstruction or gangrene (principal); K21.9 Gastro-esophageal reflux disease without esophagitis; I10 Essential (primary) hypertension; E78.00 Pure hypercholesterolemia, unspecified; Z79.899 Other long term (current) drug therapy
CPT/HCPCS: 36415; 43280; 80048; 85027; 94761; A9270; C1781; J0171; J0665; J0690; J1100; J2371; J2405; J2704; J3010; J7120; J3490

== ENCOUNTER → 2024-09-09 | Day surgery (SDC) | payer MEDICARE, BC ==
[~2024-09-09] MED LIST changes: -Dexamethasone 4 MG/ML 5 ML MDV ONE; +Ketorolac 30 MG/ML SDV IVPUSH PRN; +Ondansetron 4 MG/2 ML SDV IVPUSH PRN; -Phenylephrine 1% 10 MG/ML SDV ONE; -Rocuronium 50 MG/5 ML Vial ONE; +Sodium Chloride 0.9% 10 ML Syringe FLUSH SCH; +Sodium Chloride 0.9% 100 ML IV ONE; +ceFAZolin 2 GM Vial ONE; -dexmedeTOMIDine HCl 200 MCG/2 ML SDV ONE; +fentaNYL 100 MCG/2 ML SDV IVPUSH PRN; -fentaNYL 100 MCG/2 ML SDV ONE
[2024-09-09] MEDS: Lactated Ringers 1,000 ML IV SCH (06:20)
[2024-09-09] MEDS: Bupivacaine 0.25% 10 ML SDV ONE (07:20)
[2024-09-09] MEDS: Lidocaine 1% 10 ML MDV ONE (07:20)
[2024-09-09 07:55] VITALS: BP 126/70; PULSE 78
== END | disposition home or self-care (01) ==
LOC: JD.SDS 06:15
PROVIDERS: ATTEND Orthopaedic Surgery
DX: G56.12 Other lesions of median nerve, left upper limb (principal); G56.02 Carpal tunnel syndrome, left upper limb; K21.9 Gastro-esophageal reflux disease without esophagitis; I10 Essential (primary) hypertension; E78.00 Pure hypercholesterolemia, unspecified; Z79.899 Other long term (current) drug therapy
CPT/HCPCS: 64721; J0665; J0690; J2003; J2405; J2704; J7120; 01810; 99100

== ENCOUNTER 2025-02-24 07:50 | Day surgery (SDC) | payer MEDICARE, BC ==
[~2025-02-24 07:50] MED LIST changes: -Ketorolac 30 MG/ML SDV IVPUSH PRN; +Lactated Ringers 1,000 ML ONE; -Lidocaine 1% 5 ML VIAL ONE; +Morphine PF 10 MG/10 ML SDV ONE; -Ondansetron 4 MG/2 ML SDV IVPUSH PRN; -Ondansetron 4 MG/2 ML SDV ONE; +Phenylephrine 1% 10 MG/ML SDV ONE; -Propofol 200 MG/20 ML SDV ONE; +Ropivacaine 0.5% 5 MG/ML 30 ML SDV ONE; -Sodium Chloride 0.9% 100 ML IV ONE; -ceFAZolin 2 GM Vial ONE; -fentaNYL 100 MCG/2 ML SDV IVPUSH PRN
[2025-02-24] MEDS ORDERED: propofoL 500 MG/50 ML 50 ML ONE ×2 (07:58→09:29)
[2025-02-24] MEDS ORDERED: Propofol 200 MG/20 ML SDV ONE (07:58)
[2025-02-24] MEDS ORDERED: dexmedeTOMIDine HCl 200 MCG/2 ML SDV ONE (07:59)
[2025-02-24] MEDS ORDERED: Ropivacaine 0.5% 5 MG/ML 30 ML SDV ONE (07:59)
[2025-02-24] MEDS ORDERED: Ondansetron 4 MG/2 ML SDV ONE (07:59)
[2025-02-24] MEDS: Lactated Ringers 1,000 ML IV SCH (08:10)
[2025-02-24] MEDS: oxyCODONE ER 10 MG TAB.ER PO SCH (08:32)
[2025-02-24] MEDS ORDERED: Phenylephrine 1% 10 MG/ML SDV ONE (08:57)
[2025-02-24] MEDS ORDERED: Dexamethasone 4 MG/ML 5 ML MDV ONE (09:05)
[2025-02-24] MEDS ORDERED: ePHEDrine 50 MG/ML SDV ONE (09:12)
[2025-02-24] MEDS: Triamcinolone Acetonide 40 MG/ML 1 ML SDV ONE (09:50)
[2025-02-24] MEDS ORDERED: droPERidol 2.5 MG/ML SDV IV PRN (10:08)
[2025-02-24] MEDS ORDERED: fentaNYL 100 MCG/2 ML SDV IVPUSH PRN (10:08)
[2025-02-24 14:04] VITALS: BP 117/52; PULSE 92
== END 2025-02-24 13:35 | disposition home or self-care (01) ==
LOC: JD.SDS 07:50
PROVIDERS: ATTEND Orthopaedic Surgery
DX: M75.101 Unspecified rotator cuff tear or rupture of right shoulder, not specified as traumatic (principal); M17.12 Unilateral primary osteoarthritis, left knee; D50.9 Iron deficiency anemia, unspecified; D72.829 Elevated white blood cell count, unspecified; I10 Essential (primary) hypertension; E78.00 Pure hypercholesterolemia, unspecified; Z88.8 Allergy status to other drugs, medicaments and biological substances; Z79.82 Long term (current) use of aspirin; Z79.899 Other long term (current) drug therapy
CPT/HCPCS: 20610; 23472; 64415; 76000; 97165; A9270; C1713; C1769; C1776; J0665; J0690; J1100; J2003; J2371; J2405; J2704; J2795; J3301; J3373; J7120; J2274; J3490